=== PATIENT | male | born 1950 | race Caucasian/White ===

== ENCOUNTER 2025-01-09 11:30 | Emergency (ER) | payer MEDICARE, OTHER ==
[2025-01-09 12:12] LABS: BASOPHILS ABSOLUTE AUTO 0.04 K/uL (0.00-0.10); BASOPHILS PERCENT AUTO 0.7 % (0.1-1.3); EOSINOPHILS PERCENT AUTO 1.9 % (0.0-5.4); HEMATOCRIT 45.6 % (38.4-49.7); HEMOGLOBIN 15.7 g/dL (12.9-16.9); IMMATURE GRAN ABSOLUTE AUTO 0.03 K/uL (0.00-0.23); IMMATURE GRAN PERCENT AUTO 0.6 % (0.0-0.7); LYMPHOCYTES ABSOLUTE AUTO 1.65 K/uL (0.8-3.3); LYMPHOCYTES PERCENT AUTO 30.8 % (11.4-47.7); MEAN CORPUSCULAR HEMOGLOBIN 32.6 pg (31.6-35.5); MEAN CORPUSCULAR HGB CONC 34.4 g/dL (31.6-35.5); MEAN CORPUSCULAR VOLUME 94.8 fL (81.4-99.0); MONOCYTES ABSOLUTE AUTO 0.39 K/uL (0.20-0.90); MONOCYTES PERCENT AUTO 7.3 % (3.3-12.6); NEUTROPHILS ABSOLUTE AUTO 3.14 K/uL (1.0-7.6); NEUTROPHILS PERCENT AUTO 58.7 % (40.0-78.1); PLATELET COUNT,PLT 151 K/uL (130-375); RED BLOOD CELL COUNT 4.81 M/uL (4.14-5.76); WHITE BLOOD CELL COUNT,WBC 5.4 K/uL (3.2-11.0)
[2025-01-09] MEDS: Sodium Chloride 0.9% 1,000 ML IV ONE (12:28)
[2025-01-09 12:41] LABS: ANION GAP 8.5 mmol/L (5.0-14.0); BLOOD UREA NITROGEN,BUN 17 mg/dL (7-18); CALCIUM 9.2 mg/dL (8.5-10.1); CARBON DIOXIDE,CO2 27 mmol/L (21-32); CHLORIDE,CL 105 mmol/L (100-108); ESTIMATED GFR 79 mL/min (>60); GLUCOSE RANDOM 100 mg/dL (74-106); SODIUM,NA 140 mmol/L (140-148); TROPONIN I HIGH SENSITIVITY 4.4 pg/mL (<=60.3)
[2025-01-09] MEDS: Iopamidol 612 MG/ML 100 ML Bottle IV SCH (12:59)
[2025-01-09] MEDS: Sodium Chloride 0.9% 10 ML Syringe FLUSH ONE (12:59)
[2025-01-09] MEDS: Sodium Chloride 0.9% 100 ML IV SCH (12:59)
== END 2025-01-09 14:43 | disposition home or self-care (01) ==
LOC: JP.ED 11:30 → EDSEX 11:30 → JP.ED 14:43
DX: R42 Dizziness and giddiness (principal); Z88.8 Allergy status to other drugs, medicaments and biological substances; Z79.899 Other long term (current) drug therapy
CPT/HCPCS: 36415; 70450; 70496; 70498; 80048; 84443; 84484; 85025; 93005; 96360; 96361; 99284; J7030; Q9967; 93010